=== PATIENT | male | born 1960 | race Caucasian/White ===

== ENCOUNTER → 2018-06-26 02:12 | Emergency (ER) | payer BC ==
--- NOTE | 2018-06-26 02:38 | ED ---
Upper Extremity Pain - HPI Summary HPI Summary: This patient is a 58 year old male presenting to the ED with a cc LUE pain that began last night. He states the pain began in his left pinky finger and now radiates up his arm. He states it lasted an hour and then it returned waking him from sleep, this is when he decided to come to the ED. The patient rates the pain 3/10 in severity. He denies injury, SOB, diaphoresis, and CP. He is concerned about a cardiac event - History of Current Complaint Chief Complaint: EDExtremityUpper Stated Complaint: LEFT ARM PAIN Hx Obtained From: Patient Mechanism Of Injury: Other - none Onset/Duration: Started Days Ago, Still Present Timing: Intermittent Severity Initially: Moderate Severity Currently: Moderate Pain Location: Hand - left Associated Signs & Symptoms: Negative: Chest Pain, SOB, Diaphoresis, Nausea - Allergies/Home Medications Allergies/Adverse Reactions: Allergies Allergy/AdvReac Type Severity Reaction Status Date / Time No Known Allergies Allergy Verified 06/26/18 02:17 Home Medications: Home Medications NK [No Home Medications Reported] 06/26/18 [History Confirmed 06/26/18] PMH/Surg Hx/FS Hx/Imm Hx Endocrine/Hematology History: Denies: Hx Blood Transfusions, Hx Anemia Cardiovascular History: Denies: Hx Embolism Infectious Disease History: No Infectious Disease History: Denies: Traveled Outside the [place] in Last 30 Days - Family History Known Family History: Positive: Cardiac Disease - Social History Lives: With Family Alcohol Use: Occasionally Hx Substance Use: Yes Substance Use Type: Reports: Marijuana Hx Tobacco Use: No Smoking Status (MU): Never Smoked Tobacco Review of Systems Constitutional: Negative - injury Negative: Skin Diaphoresis Negative: Chest Pain Negative: Shortness Of Breath Positive: Other - pain in left hand All Other Systems Reviewed And Are Negative: Yes Physical Exam - Summary Physical Exam Summary: Appearance: Well appearing, no pain distress Skin: warm, dry, reflects adequate perfusion Head/face: normal Eyes: EOMI, IRLANDA ENT: normal Neck: supple, non-tender Respiratory: CTA, breath sounds present Cardiovascular: RRR, pulses symmetrical Abdomen: non-tender, soft Musculoskeletal: normal, strength/ROM intact Neuro: normal, sensory motor intact, A&Ox3 Triage Information Reviewed: Yes Vital Signs On Initial Exam: Initial Vitals Temp Pulse Resp BP Pulse Ox 97.7 F 66 16 146/97 99 06/26/18 02:13 06/26/18 02:13 06/26/18 02:13 06/26/18 02:13 06/26/18 02:13 Vital Signs Reviewed: Yes Diagnostics - Vital Signs Vital Signs Temp Pulse Resp BP Pulse Ox 06/26/18 02:13 97.7 F 66 16 146/97 99 - Laboratory Result Diagrams: 06/26/18 02:59 06/26/18 02:59 Lab Statement: Any lab studies that have been ordered have been reviewed, and results considered in the medical decision making process. - Radiology CXR Radiology Interpretation Completed By: ED Physician Summary of Radiographic Findings: no acute disease. Pending official report. - EKG 0249 Cardiac Rate: NL EKG Rhythm: Sinus Rhythm - at 65 BPM Summary of EKG Findings: no acute changes Course/Dx - Course Assessment/Plan: This patient is a 58 year old male presenting to the ED with a cc LUE pain that began last night. He states the pain began in his left pinky finger and now radiates up his arm. He states it lasted an hour and then it returned waking him from sleep, this is when he decided to come to the ED. The patient rates the pain 3/10 in severity. He denies injury, SOB, diaphoresis, and CP. Bloodwork obtained. Trop was negative. EKD shows NSR. CXR reveals, no acute disease. Pending official report. The patient will be discharged and will f/u with his PCP. - Diagnoses Provider Diagnoses: Hand pain Discharge - Sign-Out/Discharge Documenting (check all that apply): Patient Departure Patient Received Moderate/Deep Sedation with Procedure: No - Discharge Plan Condition: Stable Disposition: HOME Patient Education Materials: Arthralgia (ED) Referrals: Erick Hendreson MD [Primary Care Provider] - Additional Instructions: Follow up with your primary care physician in 1-3 days. RETURN TO THE EMERGENCY DEPARTMENT FOR CHANGING OR WORSENING SYMPTOMS. - Attestation Statements Document Initiated by Scribe: Yes Documenting Scribe: Max Magdaleno Provider For Whom Scribe is Documenting (Include Credential): Richy Hampton MD Scribe Attestation: Max Santillan scribed for Richy Hampton MD on 06/26/18 at 0343. Status of Scribe Document: Ready
[2018-06-26 03:06] LABS: ABS Basophils 0.1 10^3/ul (0-0.2); ABS Eosinophils 0.2 10^3/ul (0-0.6); ABS Monocytes 0.5 10^3/ul (0-0.8); ABS Neutrophils 3.6 10^3/ul (1.5-7.7); ABS Nucleated RBC 0 10^3/ul; Eosinophil % 2.5 %; Hematocrit 43 % (42-52); Hemoglobin 14.3 g/dl (14.0-18.0); Lymphocyte % 41.1 %; Mean Corpuscular HGB Conc 34 g/dl (31-36); Mean Corpuscular Hemoglobin 30 pg (27-31); Mean Corpuscular Volume 89 fL (80-94); Mean Platelet Volume 8.1 fL (7.4-10.4); Nucleated Red Blood Cells % 0; Platelet Count 177 10^3/ul (150-450); Red Cell Distribution Width 13 % (10.5-15); White Blood Count 7.4 10^3/ul (3.5-10.8)
[2018-06-26 03:29] LABS: Albumin 4.1 g/dL (3.2-5.2); Albumin/Globulin Ratio 1.8 (1-3); BUN/Creatinine Ratio 31.7 (8-20); Calcium 8.9 mg/dL (8.6-10.3); EGFR African American 117.6 (>60); EGFR Non-African American 97.2 (>60); Globulin 2.3 g/dL (2-4); Potassium 3.6 mmol/L (3.5-5.0); Total Bilirubin 0.4 mg/dL (0.2-1.0); Total Protein 6.4 g/dL (6.4-8.9)
[2018-06-26 04:16] VITALS: BP 123/82
== END | disposition home or self-care (01) ==
LOC: ED 02:12
DX: M79.642 Pain in left hand (principal)
CPT/HCPCS: 36415; 71046; 80053; 84484; 85025; 93005; 99282